=== PATIENT | male | born 1960 | race Two or more races ===

== ENCOUNTER → 2018-10-11 | Outpatient (CLI) | payer SELFPAY ==
--- NOTE | 2018-10-11 11:43 | Diagnostic Imaging Report ---
TECHNIQUE: Magnetic resonance imaging of the RIGHT KNEE was performed WITHOUT injected contrast. HISTORY: Right knee pain COMPARISON: None available. FINDINGS: LIGAMENTS AND TENDONS: ACL: Intact PCL: Intact Collateral ligaments: Intact Iliotibial band: Unremarkable Popliteal tendon: Intact Extensor mechanism: Intact JOINT: Menisci: Medial: Attenuation in size with horizontal tear of the body and posterior horn Lateral: Attenuation size with horizontal tear of the anterior body and horn. Articular Cartilage: Medial Compartment: High-grade cartilage loss Lateral Compartment: High-grade cartilage loss Patellofemoral Compartment: Intermediate grade cartilage loss Joint Fluid: Large joint effusion with synovitis and Nrowood's cyst extending 5 cm in craniocaudal dimension. BONE: Mild subchondral edema and cystic change in the lateral compartment. No acute fracture. SOFT TISSUES: Otherwise, unremarkable. IMPRESSION: Large joint effusion and synovitis may be reflective of rheumatoid or crystalline arthropathy. Medial and lateral meniscus tears with cartilage loss. Signed by: Dr. Troy Ruby M.D. on 10/11/2018 11:39 AM
== END ==
LOC: MRI 10:24
PROVIDERS: ATTEND Specialist
DX: S83.241A Other tear of medial meniscus, current injury, right knee, initial encounter (principal)

== ENCOUNTER → 2018-11-06 | Day surgery (SDC) | payer OTHER ==
[~2018-11-06] MED LIST: ACETAMINOPHEN/CODEINE 300MG - 30MG TAB ONE; BUPIVACAINE 0.5%/EPI 30 ML SDV INJ ONE; CEFAZOLIN SOD 2 GM/D5W 50ML 50 ML IV ONE; CLARITIN-D 241 EACH PO; DEXAMETHASONE SOD PHOS INJ 4 MG/ML VIAL ONE; FENTANYL CITRATE/PF 100MCG/2 ML INJ ONE; KETOROLAC TROMETHAMINE 30 MG/ML VIAL ONE; LEVOTHYROXINE50 MCG PO; LIDOCAINE HCL 2% LOCAL INJ 5 ML SDV VIAL INJ ONE; LOSARTAN POTASS25 MG; MIDAZOLAM HCL 2 MG/2 ML VIAL ONE; MOTRIN200 MG PO; OMEPRAZOLE40 MG; ONDANSETRON HCL INJ 2MG/ML 2ML 2 MG/ML VIAL ONE; PROPOFOL IV EMULSION 10 MG/ML 20 ML VIAL ONE; SEVOFLURANE INHAL SOLN 250 ML PEN BTL ONE; ZANTAC25 MG/1 ML
--- OUTSIDE RECORDS SUMMARY | 2018-11-06 06:00 | XMS REPORT ---
Author [facility] Address Unknown Phone Unavailable Care Team Providers Care Placement Secretary Name Role Phone MENDY COOK Unavailable Unavailable RUKHSANA HUBBARD Unavailable Unavailable Problems This patient has no known problems. Allergies, Adverse Reactions, Alerts This patient has no known allergies or adverse reactions. Medications This patient has no known medications. Results Test Description Test Time Test Comments Text Results Atomic Results Result Comments MRI RIGHT KNEE WO 2018-10-11 11:35:00 [place] [address] Patient Name: GEORGE GEIGER MR #: [id number] : 1960 Age/Sex: 58/M Req #: [id number] Adm Physician: Ordered by: MENDY COOK MD Report #: [id number] Location: MRI Room/Bed: Procedure: [id number] MRI/MRI RIGHT KNEE WO Exam Date: Exam Time: REPORT STATUS: Signed TECHNIQUE: Magnetic resonance imaging of the RIGHT KNEE was perfor med WITHOUT injected contrast. HISTORY: Right knee pain COMPARISON: None available. FINDINGS: LIGAMENTS AND TENDONS: ACL: Intact PCL: Intact Collateral ligaments: Intact Iliotibial band: Unremarkable Popliteal tendon: Intact Extensor mechanism: Intact JOINT: Menisci: Medial: Attenuation in size with horizontal tear of the body and posterior horn Lateral: Attenuation size with horizontal tear of the anterior body and horn. Articular Cartilage: Medial Compartment: High-grade cartilage loss Lateral Compartment: High-grade cartilage loss Patellofemoral Compartment: Intermediate grade cartilage loss Joint Fluid: Large joint effusion with synovitis and Norwood's cyst extending 5 cm in craniocaudal dimension. BONE: Mild subchondral edema and cystic change in the lateral compartment. No acute fracture. SOFT TISSUES: Otherwise, unremarkable. IMPRESSION: Large joint effusion and synovitis may be reflective of rheumatoid or crystalline arthropathy. Medial and lateral meniscus tears with cartilage loss. Signed by: Dr. Aniya Marquez M.D. on 10/11/2018 11:39 AM Dictated By: ANIYA MARQUEZ MD 113 Transcribed By: OSMEL on 10/11/18 113 COPY TO: MENDY COOK MD CT CHEST WO [place] [address] Patient Name: GEORGE BLACKWELL MR #: [id number] : 1960 Age/Sex: 56/M Req #: [id number] Adm Physician: Ordered by: RUKHSANA HUBBARD MD Report #: [id number] Location: CT Room/Bed: Procedure: [id number] CT/CT CHEST WO Exam Date: 04/17/17 Exam Time: 1130 REPORT STATUS: Signed PROCEDURE: CT CHEST WITHOUT CONTRAST CT scan of the chest WITHOUT intravenous contrast, using standard protocol. TECHNIQUE: The chest was scanned utilizing a multidetector helical scanner from the apex to the level of the adrenal glands. No IV contrast was administered per physician's request. Coronal and sagittal multiplanar reformations were obtained. COMPARISON: None. INDICATIONS: CHRONIC COUGH FINDINGS: Lines/tubes: None. Lungs and Airways: Mild bilateral lower lobe dependent atelectasis. Linear scarring with associated mild bronchiectasis is noted in the lateral aspect of the lingula (series 3, image 65). Bilateral central bronchial wall thickening, with mild associated ground glass opacities in the left lower lobe (for example series 3, image 51-57). No pulmonary nodules, masses, or consolidation. Airways are clear, without endobronchial lesions. Pleura: No effusion, or pneumothorax. Heart and mediastinum: Thyroid is unremarkable. Heart is borderline to mildly enlarged. No pericardial effusion. Aorta is non-aneurysmal. Mild atherosclerotic calcification of the coronary arteries and aortic arch. Main pulmonary artery is normal in caliber. Lymph nodes: No mediastinal, hilar, or axillary adenopathy. Abdomen: Limited views of the upper abdomen show no abnormality within the visualized spleen, or bowel. Diffuse hepatic steatosis. The visualized portions of the adrenal glands are normal. Bones: No acute bony abnormalities. No lytic or blastic lesions. IMPRESSION: 1. Findings suggestive of bronchitis, worse in the left lower lobe. No definite consolidation. Recommend followup chest CT without contrast with high resolution protocol after appropriate treatment, if there is clinical concern for interstitial lung disease. 2. Borderline to mild cardiomegaly. 3. Diffuse hepatic steatosis. Shireen Rockwell M.D. Dictated by: Shireen Rockwell M.D. on 04/17/2017 at 20:55 Anyi ctronically approved by: Shireen Rockwell M.D. on 04/17/2017 at 20:55 Dictated By: SHIREEN ROCKWELL MD 54 Transcribed By: MARGOT on 04/17/172054 COPY TO: RUKHSANA HUBBARD MD
[2018-11-06 10:15] VITALS: BP 154/92
[2018-11-06 11:24] LABS: BODY FLUID APPEARANCE CLOUDY; BODY FLUID COLOR RED; BODY FLUID TYPE SYNOVIAL
[2018-11-06 11:26] LABS: RBC,BODY FLUID 2896 cells/uL; WBC,BODY FLUID 21384 cells/uL
[2018-11-06 12:44] LABS: EOSINOPHILS,BODY FLUID 1 %; LYMPHOCYTES,BODY FLUID 29 %; MONO/MACROPHG,BODY FLUID 6 %; NEUTROPHILS,BODY FLUID 64 %
--- NOTE | 2018-11-11 15:14 | Operative Report ---
DATE OF PROCEDURE: 11/06/2018 SURGEON: Jimbo Callahan MD PREOPERATIVE DIAGNOSES: Right knee synovitis, right knee medial meniscus tear, right knee lateral meniscus tear, right knee degenerative joint disease of the knee. POSTOPERATIVE DIAGNOSES: Right knee synovitis, right knee medial meniscus tear, right knee lateral meniscus tear, right knee degenerative joint disease in the knee, right knee intra-articular loose body. Right knee medial shelf plica. OPERATIONS AND PROCEDURE PERFORMED: The patient right knee exam under anesthesia, right knee arthroscopy, right knee partial medial meniscectomy, right knee partial lateral meniscectomy right knee chondroplasty of the patella, the trochlea, the medial femoral condyle, the medial two plateau, the lateral femoral condyle, lateral tibial plateau, removal of multiple intra-articular loose bodies. The patient underwent a partial synovectomy with synovial biopsies and resection of a medial shelf plica. TRANSPORTATION SPECIALIST: Kati Celaya. ANESTHESIA: General endotracheal. IV FLUIDS: Per the Anesthesia record. BRIEF DISCUSSION OF THE PATIENT'S OPERATIVE PROCEDURE: Mr. Barroso was taken to the operating room, placed in supine position on the operating table. Following induction of general anesthesia as well as the endotracheal intubation, the patient's right upper extremity was examined under anesthesia. It was found to have an effusion within the knee joint. Ligaments were stable. The patient's lower extremities were prepped and draped in standard surgical fashion. The case was began by creating a two-port technique. The scope cannula was placed within the knee joint and approximately 20 mL of normal-appearing synovial fluid were removed from the knee joint. This was sent to the laboratory for evaluation as well as crystal analysis. Scope was placed within the knee joint atraumatically. Examination of the patellofemoral joint demonstrated chondromalacia. There was a large plica interdigitating between the patella, the trochlea. There was diffuse synovitis in the suprapatellar pouch. Scope was advanced to the medial and lateral gutters and no loose bodies were just identified. Scope was advanced to the medial compartment. Examination of the medial compartment demonstrated intra-articular loose bodies. There was also a torn medial meniscus. There was also chondromalacia articulating surfaces. Graft was placed in the knee joint. Loose body was removed. Using a combination of aggressive biters and shaver, a partial medial meniscectomy was performed. Shaver was then used to provide a chondroplasty of the medial femoral condyle, medial plateau. Scope was advanced to the intercondylar notch and the anterior cruciate ligament identified, found to be intact. Scope was advanced to the lateral compartment. There was a tear of the lateral meniscus. There was also chondromalacia articulating surfaces. A combination of biting forceps and motorized shaver were used to resect the torn portion of meniscus. Chondroplasties of the lateral femoral condyle, lateral tibial plateau performed at this time. Scope was then placed. Suprapatellar pouch. Multiple synovial biopsies were performed. These were passed off to the circulating nurse to be sent to Pathology. The medial shelf plica was resected. A chondroplasty of the patellar trochlear surfaces was performed at this time. There were multiple loose bodies in suprapatellar pouch. These were also removed at this time. The knee was inflated with sterile saline. The portal sites were closed using 4-0 nylon suture. The portal sites were closed itself and injected unit injected 0.5% Marcaine with epinephrine. Sterile dressings were applied. The patient was awakened, taken to postanesthesia care unit in stable condition. MD EMILIANO Molina/PRASANTH /[id number]
== END | disposition home or self-care (01) ==
LOC: OR 05:49
PROVIDERS: ATTEND Specialist
DX: S83.221A Peripheral tear of medial meniscus, current injury, right knee, initial encounter (principal); S83.261A Peripheral tear of lateral meniscus, current injury, right knee, initial encounter; M67.51 Plica syndrome, right knee; M22.41 Chondromalacia patellae, right knee; M06.861 Other specified rheumatoid arthritis, right knee; M17.11 Unilateral primary osteoarthritis, right knee; M23.41 Loose body in knee, right knee; M65.861 Other synovitis and tenosynovitis, right lower leg; M10.061 Idiopathic gout, right knee; I10 Essential (primary) hypertension; J45.909 Unspecified asthma, uncomplicated; E03.9 Hypothyroidism, unspecified; K21.9 Gastro-esophageal reflux disease without esophagitis; R06.83 Snoring; X58.XXXA Exposure to other specified factors, initial encounter; Z01.810 Encounter for preprocedural cardiovascular examination; Z68.30 Body mass index [BMI] 30.0-30.9, adult
CPT/HCPCS: 29880; 36415; 87071; 87075; 87102; 87116; 87205; 87206 ×2; 88305; 89051; 89060 ×2; 93005; J0690; J1100; J1885; J2001; J2250; J2405; J2704

== ENCOUNTER → 2020-01-12 | Outpatient (CLI) | payer OTHER ==
[~2020-01-12] MED LIST changes: -ACETAMINOPHEN/CODEINE 300MG - 30MG TAB ONE; -BUPIVACAINE 0.5%/EPI 30 ML SDV INJ ONE; -CEFAZOLIN SOD 2 GM/D5W 50ML 50 ML IV ONE; -DEXAMETHASONE SOD PHOS INJ 4 MG/ML VIAL ONE; -FENTANYL CITRATE/PF 100MCG/2 ML INJ ONE; -KETOROLAC TROMETHAMINE 30 MG/ML VIAL ONE; -LIDOCAINE HCL 2% LOCAL INJ 5 ML SDV VIAL INJ ONE; -MIDAZOLAM HCL 2 MG/2 ML VIAL ONE; -ONDANSETRON HCL INJ 2MG/ML 2ML 2 MG/ML VIAL ONE; -PROPOFOL IV EMULSION 10 MG/ML 20 ML VIAL ONE; -SEVOFLURANE INHAL SOLN 250 ML PEN BTL ONE
--- NOTE | 2020-01-12 19:14 | Diagnostic Imaging Report ---
Hepatobiliary Scan with Gallbladder Ejection Fraction Clinical information: Cholelithiasis; severe bloating Technique: Following intravenous administration of 6.6 millicuries of Tc-99m mebrofenin, dynamic images of the abdomen in the anterior projection were obtained through 60 minutes. Sincalide (CCK analog) 1.9 micrograms was administered intravenously over 30 minutes with additional imaging for determination of gallbladder ejection fraction. Discussion: Perfusion of the liver is normal. Extraction of tracer by the liver parenchyma is normal. Tracer appears promptly within the biliary tract. The gallbladder begins to fill by 44 minutes post injection of tracer and fills adequately. Tracer is seen in the small bowel by 30 minutes. The gallbladder ejection fraction with sincalide is 30% (normal greater than 40%). Impression: 1. Filling of the gallbladder excludes acute cystic duct obstruction/acute cholecystitis. 2. The decreased gallbladder ejection fraction of 30% supports the clinical diagnosis of chronic cholecystitis/gallbladder dyskinesia. Signed by: Dr. Lucie Faye M.D. on 01/12/2020 7:10 PM
== END ==
LOC: NM 09:31
PROVIDERS: ATTEND Internal Medicine
DX: K80.20 Calculus of gallbladder without cholecystitis without obstruction (principal)
CPT/HCPCS: 78227; A9537

== ENCOUNTER → 2021-07-07 | Outpatient (CLI) | payer OTHER | LOC: MRI 08:11 | PROVIDERS: ATTEND Specialist | DX: M17.11 Unilateral primary osteoarthritis, right knee (principal) ==

== ENCOUNTER → 2021-10-10 | Day surgery (SDC) | payer OTHER ==
[~2021-10-10] MED LIST changes: +AMLODIPINE BESY10 MG PO; +ASPIRIN81 MG PO; +CELECOXIB 200 MG CAP ONE; +DEXAMETHASONE SOD PHOS 10 MG/1 ML VIAL ONE; +GABAPENTIN 300 MG CAP ONE; +HYDROCODONE/APAP 7.5MG-325MG 1 EA TAB ONE; +LIDOCAINE HCL 2% LOCAL INJ 5 ML SDV VIAL INJ ONE; +PROPOFOL IV EMULSION 10 MG/ML 20 ML VIAL ONE; +ROPIVACAINE 246.25 MG, EPINEPHRINE HCL 1:1000 1ML 0.5 MG, CLONIDINE HCL 0.08 MG, KETORO... INJ ONE; +SODIUM CHLORIDE 0.9% 50ML 100 ML ONE; +TRANEXAMIC ACID 1,000 MG/10 ML ML ONE; +Vancomycin IV 1,000 MG ONE
[2021-10-10 14:57] LABS: BODY FLUID APPEARANCE TURBID; BODY FLUID COLOR YELLOW; BODY FLUID TYPE SYNOVIAL; RBC,BODY FLUID 48000 cells/uL; WBC,BODY FLUID 26723 cells/uL
[2021-10-10 16:00] VITALS: BP 134/83
[2021-10-10 16:30] LABS: LYMPHOCYTES,BODY FLUID 36 %; MONO/MACROPHG,BODY FLUID 12 %; NEUTROPHILS,BODY FLUID 52 %
== END | disposition home or self-care (01) ==
LOC: OR 07:52
PROVIDERS: ATTEND Specialist
DX: M12.861 Other specific arthropathies, not elsewhere classified, right knee (principal); M65.9 Synovitis and tenosynovitis, unspecified; M25.461 Effusion, right knee; I10 Essential (primary) hypertension; E03.9 Hypothyroidism, unspecified; K21.9 Gastro-esophageal reflux disease without esophagitis; Z79.82 Long term (current) use of aspirin; Z79.899 Other long term (current) drug therapy; Z01.812 Encounter for preprocedural laboratory examination; Z20.822 Contact with and (suspected) exposure to COVID-19
CPT/HCPCS: 36415; 82948; 86850; 86900; 86920; 87071; 87075; 87102; 87205; 87206; 88305; 88331; 88333; 89051; C1713; J0171; J0690; J1100; J1885; J2001; J2795; J3370; U0002

== ENCOUNTER 2022-03-28 08:54 | Observation (INO) | payer OTHER ==
[~2022-03-28] VITALS: Ht 177.8 cm; Wt 95.3 kg
[~2022-03-28 08:54] MED LIST changes: -HYDROCODONE/APAP 7.5MG-325MG 1 EA TAB ONE; -LIDOCAINE HCL 2% LOCAL INJ 5 ML SDV VIAL INJ ONE; +NAPROXEN250 MG PO; -PROPOFOL IV EMULSION 10 MG/ML 20 ML VIAL ONE; -SODIUM CHLORIDE 0.9% 50ML 100 ML ONE; -TRANEXAMIC ACID 1,000 MG/10 ML ML ONE; -Vancomycin IV 1,000 MG ONE
[2022-03-28] MEDS ORDERED: SODIUM CHLORIDE 0.9% 500ML 500 ML ONE (09:27)
[2022-03-28] MEDS ORDERED: TRANEXAMIC ACID 20 ML ONE (09:27)
[2022-03-28] MEDS ORDERED: Vancomycin IV 1,000 MG ONE (09:27)
[2022-03-28] MEDS ORDERED: ROPIVACAINE 0.5% 5 MG/ML 30 ML SDV ONE (12:26)
[2022-03-28] MEDS ORDERED: ACETAMINOPHEN 1000 MG/100 ML IV ONE (12:40)
[2022-03-28] MEDS ORDERED: ONDANSETRON HCL INJ 2MG/ML 2ML 2 MG/ML VIAL ONE (12:40)
[2022-03-28] MEDS ORDERED: PROPOFOL IV EMULSION 10 MG/ML 20 ML VIAL ONE (12:40)
[2022-03-28] MEDS ORDERED: LIDOCAINE HCL 2% LOCAL INJ 5 ML SDV VIAL INJ ONE (12:40)
[2022-03-28] MEDS ORDERED: SEVOFLURANE INHAL SOLN 250 ML PEN BTL ONE (12:40)
[2022-03-28] MEDS ORDERED: POVIDONE IODINE 0.05% 0.05 % ML PO ONE (12:40)
[2022-03-28] MEDS ORDERED: DEXAMETHASONE SOD PHOS INJ 4 MG/ML SDV ONE (12:40)
[2022-03-28] MEDS ORDERED: Morphine 10mg syringe 10 MG/ML INJ ONE (13:37)
[2022-03-28] MEDS ORDERED: FENTANYL CITRATE/PF 100MCG/2 ML INJ ONE ×2 (13:37→14:44)
[2022-03-28] MEDS ORDERED: MIDAZOLAM HCL 2 MG/2 ML VIAL ONE (13:37)
[2022-03-28] MEDS ORDERED: KETAMINE HCL INJ 50 MG/ML 10 ML VIAL ONE (13:37)
[2022-03-28] MEDS ORDERED: HYDROCODONE/APAP 5MG-325MG TAB PO PRN (13:45)
[2022-03-28] MEDS: SODIUM CHLORIDE 0.9% 1000ML 1,000 ML IV SCH ×2 (13:45→22:31)
[2022-03-28] MEDS ORDERED: ACETAMINOPHEN 650 MG SUPP PR PRN (13:45)
[2022-03-28] MEDS ORDERED: DOCUSATE SODIUM 100 MG CAP PO PRN (13:45)
[2022-03-28] MEDS ORDERED: ONDANSETRON HCL INJ 2MG/ML 2ML 2 MG/ML VIAL IV PRN (13:45)
[2022-03-28] MEDS ORDERED: DIPHENHYDRAMINE HCL INJ 50 MG/ML VIAL IV PRN (13:45)
[2022-03-28 14:44] VITALS: BP 125/73
[2022-03-28 15:15] VITALS: BP 124/73
[2022-03-28] MEDS: ASPIRIN 325 MG TAB PO SCH (16:56)
[2022-03-28] MEDS: CELECOXIB 100 MG CAP PO SCH (16:56)
[2022-03-28] MEDS: HYDROCODONE/APAP 7.5MG-325MG 1 EA TAB PO PRN (16:57)
[2022-03-28 20:00] VITALS: BP 109/75
[2022-03-28 20:15] VITALS: BP 109/75
[2022-03-28] MEDS ORDERED: ZOLPIDEM TARTRATE 5 MG TAB PO PRN (21:00)
[2022-03-29] VITALS: BP 120/78
[2022-03-29] MEDS: SODIUM CHLORIDE 0.9% 1000ML 1,000 ML IV SCH (03:58)
[2022-03-29 04:00] VITALS: BP 124/84
[2022-03-29] MEDS: HYDROCODONE/APAP 7.5MG-325MG 1 EA TAB PO PRN (04:09)
[2022-03-29 05:03] LABS: HEMATOCRIT 34.6 % (38.2-49.6); HEMOGLOBIN 10.8 g/dL (14.0-18.0)
[2022-03-29 08:01] VITALS: BP 122/71
[2022-03-29 08:31] VITALS: BP 122/71
[2022-03-29] MEDS: ASPIRIN 325 MG TAB PO SCH (09:42)
[2022-03-29] MEDS: CELECOXIB 100 MG CAP PO SCH (09:43)
[2022-03-29] MEDS ORDERED: ASPIRIN81 MG PO (12:05)
[2022-03-29 12:48] VITALS: BP 130/71
== END 2022-03-29 13:16 | disposition home or self-care (01) ==
LOC: OR 08:54 → PACU V 13:31 → MED/SURG 14:45
PROVIDERS: ADMIT Specialist; ATTEND Specialist
DX: M13.861 Other specified arthritis, right knee (principal); K21.9 Gastro-esophageal reflux disease without esophagitis; I10 Essential (primary) hypertension; J30.2 Other seasonal allergic rhinitis; E03.9 Hypothyroidism, unspecified
CPT/HCPCS: 36415; 85014; 85018; 86850; 86900; 86920; 94799; C1713; C1776; G0378; J0171; J0690; J1100; J1885; J2001; J2250; J2270; J2405; J2795; J3010; J3370; J7030; J7040

== ENCOUNTER → 2023-07-31 | Day surgery (SDC) | payer OTHER ==
[~2023-07-31] MED LIST changes: -CELECOXIB 200 MG CAP ONE; -DEXAMETHASONE SOD PHOS 10 MG/1 ML VIAL ONE; +FAMOTIDINE20 MG PO; +FENTANYL CITRATE/PF 100MCG/2 ML INJ ONE; -GABAPENTIN 300 MG CAP ONE; +GLYCOPYRROLATE INJ 0.2 MG/ML VIAL ONE; +LACTATED RINGER'S 1,000 ML ONE; +LIDOCAINE HCL 2% LOCAL INJ 5 ML SDV VIAL INJ ONE; +METOCLOPRAMIDE HCL 10 MG/2ML VIAL ONE; +PROPOFOL IV EMULSION 10 MG/ML 20 ML VIAL ONE; +PROPOFOL IV EMULSION 10 MG/ML 50 ML VIAL IV ONE; -ROPIVACAINE 246.25 MG, EPINEPHRINE HCL 1:1000 1ML 0.5 MG, CLONIDINE HCL 0.08 MG, KETORO... INJ ONE
[2023-07-31 13:10] VITALS: TEMP 97.8
[2023-07-31 13:40] VITALS: BP 113/65; PULSE 65; RESP 16; O2SAT 98
== END | disposition home or self-care (01) ==
LOC: OR 11:21
PROVIDERS: ATTEND Internal Medicine Gastroenterology
DX: K21.00 Gastro-esophageal reflux disease with esophagitis, without bleeding (principal); K29.50 Unspecified chronic gastritis without bleeding; K44.9 Diaphragmatic hernia without obstruction or gangrene; Z86.010 Personal history of colon polyps; I10 Essential (primary) hypertension; J44.9 Chronic obstructive pulmonary disease, unspecified; E03.9 Hypothyroidism, unspecified; M06.9 Rheumatoid arthritis, unspecified; Z01.810 Encounter for preprocedural cardiovascular examination; Z79.82 Long term (current) use of aspirin; Z79.899 Other long term (current) drug therapy; Z68.31 Body mass index [BMI] 31.0-31.9, adult
CPT/HCPCS: 43239; 43450; 93005; C9113; J2001; J2704 ×2; J2765; J3010; J7121

== ENCOUNTER → 2025-01-01 | Day surgery (SDC) | payer OTHER ==
[2024-12-29 10:46] LABS: BASOPHILS % 0.4 % (0.0-1.0); EOSINOPHILS # (AUTO) 0.3 (0.0-0.4); EOSINOPHILS % 4.2 % (0.0-6.0); HEMATOCRIT 43.2 % (38.2-49.6); HEMOGLOBIN 13.8 g/dL (14.0-18.0); LYMPHOCYTES # (AUTO) 2.3 (1.0-3.2); LYMPHOCYTES % 33.5 % (18.0-39.1); MEAN CORPUSCULAR HEMOGLOBIN 27.2 pg (28-32); MEAN CORPUSCULAR HGB CONC 31.9 g/dL (31-35); MEAN CORPUSCULAR VOLUME 85.2 fL (81-99); MONOCYTES # (AUTO) 0.6 (0.2-0.8); MONOCYTES % 8.6 % (4.4-11.3); NEUTROPHILS # (AUTO) 3.7 (2.1-6.9); PLATELET COUNT 244 x10e3/uL (140-360); RED BLOOD COUNT 5.07 x10e6/uL (4.3-5.7); RED CELL DISTRIBUTION WIDTH 13.3 % (11.7-14.4); WHITE BLOOD COUNT 6.96 x10e3/uL (4.8-10.8)
[~2025-01-01] MED LIST changes: +ACETAMINOPHEN 1000 MG/100 ML 100 ML IV ONE; +ASPIRIN 325 MG TAB PO SCH; +BUPIVACAINE 0.5%/EPI 30 ML SDV INJ ONE; +CELECOXIB 100 MG CAP PO SCH; +DEXAMETHASONE SOD PHOS INJ 4 MG/ML SDV ONE; +DOCUSATE SODIUM 100 MG CAP PO PRN; +EPHEDRINE SULFATE INJ 50 MG/ML VIAL ONE; -GLYCOPYRROLATE INJ 0.2 MG/ML VIAL ONE; +HYDROCODONE/APAP 7.5MG-325MG 1 EA TAB PO PRN; -LACTATED RINGER'S 1,000 ML ONE; -METOCLOPRAMIDE HCL 10 MG/2ML VIAL ONE; +MIDAZOLAM HCL 2 MG/2 ML VIAL ONE; +ONDANSETRON HCL INJ 2MG/ML 2ML 2 MG/ML VIAL IV PRN; +ONDANSETRON HCL INJ 2MG/ML 2ML 2 MG/ML VIAL ONE; -PROPOFOL IV EMULSION 10 MG/ML 20 ML VIAL ONE; -PROPOFOL IV EMULSION 10 MG/ML 50 ML VIAL IV ONE; +PROPOFOL IV EMULSION 50 ML IV ONE; +ROPIVACAINE/EPI/CLONIDINE/KET 50 ML SYRINGE INJ ONE; +SEVOFLURANE INHAL SOLN 250 ML PEN BTL ONE
[2025-01-01] MEDS: CEFAZOLIN SODIUM 2 GM ONE (08:07)
[2025-01-01] MEDS: LACTATED RINGER'S 1,000 ML ONE (08:07)
[2025-01-01 13:09] VITALS: TEMP 98
[2025-01-01] MEDS: HYDROCODONE/APAP 7.5MG-325MG 1 EA TAB ONE (14:05)
[2025-01-01 14:15] VITALS: BP 135/83; PULSE 76; RESP 18; O2SAT 98
== END | disposition home or self-care (01) ==
LOC: OR 07:25
PROVIDERS: ATTEND Orthopaedic Surgery Adult Reconstructive Orthopaedic Surgery
DX: M17.12 Unilateral primary osteoarthritis, left knee (principal); Z96.651 Presence of right artificial knee joint; I10 Essential (primary) hypertension; J45.909 Unspecified asthma, uncomplicated; K21.9 Gastro-esophageal reflux disease without esophagitis; E03.9 Hypothyroidism, unspecified; G47.33 Obstructive sleep apnea (adult) (pediatric); E66.9 Obesity, unspecified; R94.31 Abnormal electrocardiogram [ECG] [EKG]; Z01.812 Encounter for preprocedural laboratory examination; Z01.810 Encounter for preprocedural cardiovascular examination; Z86.16 Personal history of COVID-19; Z79.899 Other long term (current) drug therapy; Z79.82 Long term (current) use of aspirin
CPT/HCPCS: 27447; 36415; 73560; 85025; 86850; 86900; 93005; 97116; 97161; C1713 ×2; C1776 ×4; J0131; J1100; J2003; J2250; J2405; J2704; J3010; J7121